=== PATIENT | female | born 1965 | race Caucasian/White ===

== ENCOUNTER 2016-08-21 14:45 | Inpatient (IN) | payer OTHER, MEDICAID ==
[~2016-08-21] VITALS: Ht 175.3 cm; Wt 102.0 kg
[~2016-08-21 14:45] MED LIST: CARV12.52 PO; LACTATED RINGER'S 1000 ML INJ 1,000 ML IV ONE; LISI30TA44 PO; NORMOSOL R INJ 1,000 ML IV ONE; ONDANSETRON HCL 4 MG/2 ML VIAL IV PUSH ONE; PROPOFOL 200 MG/20 ML AMP IV ONE; VITA20002 PO
[2016-08-21 14:47] VITALS: BP 136/94; PULSE 90; RESP 20; TEMP 98.3; O2SAT 96
[2016-08-21] MEDS ORDERED: SODIUM CHLOR 0.9% 1000 ML INJ 1,000 ML IV SCH ×2 (15:11→15:45)
[2016-08-21] MEDS ORDERED: PANT20TA2 PO (15:11)
[2016-08-21] MEDS ORDERED: SODIUM CHLORIDE 0.9% FLUSH 5 ML FLUSH IVF PRN ×2 (15:15→20:00)
--- NOTE | 2016-08-21 15:28 | PD ---
HPI Chief Complaint: GI Complaint Time Seen by Provider: 15:11 Travel History International Travel<30 days: No Contact w/Intl Traveler<30days: No Traveled to known affect area: No History of Present Illness HPI Patient is a 50-year-old female sent to the emergency room for admission by Dr. Maurice, patient's PCP. As per Dr. Maurice, patient has been complaining of abdominal pain for the past 2 days, Dr. Maurice evaluated her in the office, the patient had peritoneal signs. Patient was sent to [facility] today for an emergent CAT scan of her abdomen and pelvis, reports that he was called as patient was found to have diverticulitis with abscess and with perforation. Dr. Maurice did call Dr. Ramos with General surgery and reviewed case, requested that patient be placed on antibiotics and admitted to Dr. Kay service. Dr. Kay is aware of case. Patient reports that for the past 2 days, she's been having increased lower abdominal pain. Patient reports that she saw her primary care doctor today who sent her for imaging studies. Patient reports that she was found to have diverticulitis with abscess and with perforation. Patient reports that she did have surgery by Dr. Cheng last year, reports that she had a gastric sleeve placed. Patient does see [facility] as outpatient, reports that she needed at EGD prior to having this gastric sleeve placed. Patient has never had a colonoscopy in the past. PFSH Past Medical History Anxiety: Yes Cancer: No Cardiovascular Problems: Yes (htn) Diabetes: No Endocrine: No Genitourinary: No Hepatitis: No Hiatal Hernia: No Hypertension: Yes Immune Disorder: No Musculoskeletal: No Neurologic: No Psychiatric: No Reproductive: No Respiratory: Yes (SLEEP APNEA) Immunizations Current: Yes Thyroid Disease: No ?: Not Menopausal: Yes Tubal Ligation: Yes Past Surgical History Abdominal Surgery: Yes (LAPAROTOMY/gastric sleeve) AICD: No Body Medical Devices: LEFT WRIST PLATE AND SCREWS Section: Yes Gynecologic Surgery: Yes (C-SECT. X2) Joint Replacement: No Pacemaker: No Other Surgery: Yes (CARPUL TUNNEL) Social History Alcohol Use: No Tobacco Use: No Substance Use: No Allergies-Medications (Allergen,Severity, Reaction): Coded Allergies: Cipro (Verified Allergy, Intermediate, nausea, hives, 08/21/16) Naproxen (Verified Adverse Reaction, Mild, nausea, 08/21/16) Reported Meds & Prescriptions Reported Meds & Active Scripts Active Reported Pantoprazole (Pantoprazole Sodium) 20 Mg Tab Unknown Dose PO DAILY Review of Systems General / Constitutional: No: Fever Eyes: No: Visual changes HENT: No: Headaches Cardiovascular: No: Chest Pain or Discomfort Respiratory: No: Shortness of Breath Gastrointestinal: Positive: Nausea, Abdominal Pain, No: Vomiting, Diarrhea Genitourinary: No: Dysuria Musculoskeletal: No: Pain Skin: No Rash Neurologic: No: Weakness Psychiatric: No: Depression Endocrine: No: Polydipsia Hematologic/Lymphatic: No: Easy Bruising Physical Exam Narrative GENERAL: No acute distress, nontoxic SKIN: Warm and dry. HEAD: Atraumatic. Normocephalic. EYES: Pupils equal and round. No scleral icterus. No injection or drainage. ENT: No nasal bleeding or discharge. Mucous membranes pink and moist. NECK: Trachea midline. No JVD. CARDIOVASCULAR: Regular rate and rhythm. No murmur appreciated. RESPIRATORY: No accessory muscle use. Clear to auscultation. Breath sounds equal bilaterally. GASTROINTESTINAL: Patient with lower abdominal pain evaluation with peritoneal signs MUSCULOSKELETAL: No obvious deformities. No clubbing. No cyanosis. No edema. NEUROLOGICAL: Awake and alert. No obvious cranial nerve deficits. Motor grossly within normal limits. Normal speech. PSYCHIATRIC: Appropriate mood and affect; insight and judgment normal. Data Data Last Documented VS Vital Signs Date Time Temp Pulse Resp B/P Pulse Ox O2 Delivery O2 Flow Rate FiO2 08/21/16 14:47 98.3 90 20 136/94 96 Room Air Orders Complete Blood Count With Diff (08/21/16 15:11) Comprehensive Metabolic Panel (08/21/16 15:11) Lipase (08/21/16 15:11) Lactic Acid (08/21/16 15:11) Prothrombin Time / Inr (Pt) (08/21/16 15:11) Act Partial Throm Time (Ptt) (08/21/16 15:11) Urinalysis - C+S If Indicated (08/21/16 15:11) Iv Access Insert/Monitor (08/21/16 15:11) Oximetry (08/21/16 15:11) NPO (08/21/16 15:11) Sodium Chlor 0.9% 1000 Ml Inj (Ns 1000 M (08/21/16 15:11) Sodium Chloride 0.9% Flush (Ns Flush) (08/21/16 15:15) Electrocardiogram (08/21/16 15:11) Piperacil-Tazo 3.375 Gm Premix (Zosyn 3. (08/21/16 15:30) Morphine Inj (Morphine Inj) (08/21/16 15:30) Diet Npo Except Meds (08/21/16 Dinner) Admit To Inpatient (08/21/16 ) Scd Bilateral/Knee High VANESSA.QSHIFT (08/21/16 15:35) Vital Signs (Adult) VANESSA.Q4H (08/21/16 15:35) Activity Oob With Assistance (08/21/16 15:35) Inpatient Certification (08/21/16 ) Sodium Chlor 0.9% 1000 Ml Inj (Ns 1000 M (08/21/16 15:45) MDM Medical Decision Making Medical Screen Exam Complete: Yes Emergency Medical Condition: Yes Interpretation(s) Vital Signs Date Time Temp Pulse Resp B/P Pulse Ox O2 Delivery O2 Flow Rate FiO2 08/21/16 14:47 98.3 90 20 136/94 96 Room Air Differential Diagnosis Acute diverticulitis with perforation and abscess formation Narrative Course Patient is a 50-year-old female who presents to emergency room for admission to the hospital by Dr. Maurice. Patient has had abdominal pain for the past 2 days , reports that she had a CAT scan of her abdomen pelvis today which showed diverticulitis with abscess and perforation. Dr. Maurice request the patient be admitted to Dr. Kay service with consult to Dr. Ramos with general surgery. Requests antibiotics be given to patient: Levaquin and Flagyl, patient has an allergy to Cipro and allergy may be hives, will give patient Zosyn in lieu of Levaquin and Flagyl. Call made to Dr. Kay for admission. Case is reviewed with Dr. Kay , accepts patient to service Diagnosis Primary Impression: Acute diverticulitis Admitting Information Admitting Physician Requests: Triny Mathew DO Aug 21, 2016 15:28
[2016-08-21] MEDS ORDERED: PIPERACIL-TAZO 3.375 GM PREMIX 50 ML IV ONE (15:30)
[2016-08-21] MEDS ORDERED: MORPHINE SULFATE 4 MG/ML INJ IM ONE (15:30)
[2016-08-21 15:40] LABS: AUTOMATED NEUTROPHIL # 7.2 TH/MM3 (1.8-7.7); BASOPHIL % 0.2 % (0.0-2.0); EOSINOPHIL # 0.1 TH/MM3 (0-0.4); HEMATOCRIT 44.5 % (35.0-46.0); HEMO FLAGS DIFF FINAL; LYMPH % 23.9 % (9.0-44.0); LYMPHOCYTE # 2.6 TH/MM3 (1.0-4.8); MEAN CELL VOLUME 83.4 FL (80.0-100.0); MEAN CORPUSCULAR HEMOGLOBIN 28.5 PG (27.0-34.0); MEAN CORPUSCULAR HGB CONC 34.2 % (32.0-36.0); NEUT % 66.9 % (16.0-70.0); PLATELET COUNT 242 TH/MM3 (150-450); RED BLOOD COUNT 5.34 MIL/MM3 (4.00-5.30); RED CELL DISTRIBUTION WIDTH 13.6 % (11.6-17.2); WHITE BLOOD COUNT 10.8 TH/MM3 (4.0-11.0)
[2016-08-21] MEDS ORDERED: ACETAMINOPHEN 325 MG TAB PO PRN ×2 (15:45→20:00)
[2016-08-21] MEDS ORDERED: MORPHINE SULFATE 4 MG/ML INJ IV PUSH PRN ×2 (15:45)
[2016-08-21] MEDS ORDERED: ONDANSETRON HCL 4 MG/2 ML VIAL IV PRN ×2 (15:45→20:00)
[2016-08-21 15:48] LABS: BLOOD, URINE NEG (NEG); COMMENT (UR) CULT NOT INDICATED; CULTURE IF INDICATED CULT NOT INDICATED; GLUCOSE,URINE NEG (NEG); KETONE, URINE NEG (NEG); MUCUS URINE FEW /lpf (OCC); NITRITE,URINE NEG (NEG); PH, URINE 5.5 (5.0-8.5); SQUAMOUS EPITHELIAL CELL URINE 1 /hpf (0-5); URINE COLOR YELLOW (YELLW/STRAW)
[2016-08-21 15:50] LABS: APTT (PATIENT) 27.5 SEC (24.3-30.1); PROTHROMBIN TIME - PATIENT 11.3 SEC (9.8-11.6)
[2016-08-21] MEDS ORDERED: VITA100021 SL (15:51)
[2016-08-21] MEDS ORDERED: [UNRECOGNIZED DRUG - OTHER] (15:51)
[2016-08-21] MEDS ORDERED: MULTTAB67 PO (15:51)
--- NOTE | 2016-08-21 15:56 | HHI.HP ---
HPI Service [facility] Hospitalists Primary Care Physician Nehemiah Maurice M.D. Admission Diagnosis Perforated diverticulitis with abscess Chief Complaint: Abd pain Travel History International Travel<30 Days: No Contact w/Intl Traveler <30 Da: No Traveled to Known Affected Are: No History of Present Illness Mrs. Durbin is a pleasant 50 y/o WF with morbid obesity s/p gastric sleeve surgery in 11/2015. She has been taking Protonix 20mg po daily since that time but has not had much problem with reflux or nausea. Pt states that two days ago she began having lower abd pain. She woke up with cramping lower abd pain. Passing small amounts of gas. No nausea or vomiting. Decreased appetite. Pt has been having issues with BMs since her surgery more constipated but was not taking any laxatives up until Thursday after the abd pain started and she took two stool softeners. She had two soft/mushy BMs yesterday and this morning. Denies any melena, BRBPR or mucoid stools. Pt reports possibly a subjective fever last night but no chills and no documented fever today. Dr. Maurice evaluated her in the office, the patient had peritoneal signs. Patient was sent to [facility] today for an emergent CAT scan of her abdomen and pelvis, reportedly the patient was found to have perforated diverticulitis with abscess. Pt was sent to the ER for Abx and surgical evaluation. Dr. Maurice did speak with Dr. Ramos prior to the pts arrival int he ER and it was indicated that Dr. Ramos wants IR to drain the abscess. Review of Systems Constitutional: DENIES: Fever, Chills, Night Sweats Respiratory: DENIES: Cough, Shortness of breath Cardiovascular: DENIES: Chest pain, Palpitations Gastrointestinal: COMPLAINS OF: Abdominal pain, DENIES: Black stools, Bloody stools, Constipation, Diarrhea, Nausea, Vomiting Integumentary: DENIES: Rash Past Family Social History Past Medical History GERD Morbid obesity s/p gastric sleeve surgery in 11/2015 Past Surgical History Gastric sleeve in 11/2015 Tubal ligation Cesarian section no previous evaluation with colonoscopy Reported Medications Pantoprazole 20 Mg PO DAILY Allergies: Coded Allergies: Cipro (Verified Allergy, Intermediate, nausea, hives, 08/21/16) Naproxen (Verified Adverse Reaction, Mild, nausea, 08/21/16) Family History Father from colon cancer at age 48 Mother with hx of diverticulitis, CVA/TIA Social History Denies any alcohol, tobacco or illicit drug use 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 SKIN: No rashes, ecchymoses or lesions. Cool and dry. HEENT: Atraumatic. Normocephalic. No temporal or scalp tenderness. No scleral icterus. Airway patent. NECK: Trachea midline, supple, nontender. CARDIOV: Regular. RESP: CTA bilaterally. No wheezes, rales, or rhonchi. ABD: Decreased BS, soft, diffusely tender, mildly distended. No guarding or rebound. EXT: Extremities without clubbing, cyanosis, or edema. NEURO: Awake and alert. Motor and sensory grossly within normal limits. Normal speech. Septic Shock Reassessment Heart: Regular rate and rhythm Lungs: Clear Skin: Warm Peripheral Pulses: Bounding Right Radial Bounding Left Radial Bounding Right Popliteal Bounding Left Popliteal Bounding Right Dorsalis Pedis Bounding Left Dorsalis Pedis Bounding Right Posterior Tibial Bounding Left Posterior Tibial Capillary Refill: <2 seconds Assessment and Plan Problem List: (1) Diverticular disease of intestine with perforation and abscess Status: Acute Plan: - Pt admitted with two days of abdominal pain and had an outpt CT scan abd/ pelvis which revealed acute diverticulitis of the sigmoid colon complicated by abscess and free air. Pt was sent to the ER by her PCP, Dr. Maurice, after being called with these CT scan findings. - Dr. Maurice spoke with Dr. Ramos, [facility] General Surgery, and it was recommended that the pt be evaluated by IR for possible drain placement. - In the ED, Dr Collins spoke with radiologist and they did not feel that IR would be able to help because the pt has significant perforation and free air throughout the abdomen. - There is also concern for possible perforation related to underlying colon cancer given her family history. - We will start the pt on Flagyl and Zosyn - Consult General Surgery - IVF - NPO - IV pain meds PRN - Antiemetics - Tylenol - Check CBC, CMP and monitor labs in AM - Vital signs are stable currently - DVT prophylaxis Assessment and Plan Patient examined. Assessment and plan formulated with Triny Osman PA-C. I agree with the above. perforated colon. possible from diverticular dz. of note pt father had colon ca at 48yo. I reviewed the CT with dr Victor and showed large intraabd free air and small pericolonic abscess to small to drainl. discussed with DR Ramos who will take her to OR today. ivf and iv abx ordered. Physician Certification 2 Midnight Certification Type: Admission for Inpatient Services Order for Inpatient Services The services are ordered in accordance with Medicare regulations or non- Medicare payer requirements, as applicable. In the case of services not specified as inpatient-only, they are appropriately provided as inpatient services in accordance with the 2-midnight benchmark. Estimated LOS (days): 3 3 days is the estimated time the patient will need to remain in the hospital, assuming treatment plan goals are met and no additional complications. Post-Hospital Plan: Not yet determined Triny Osman Aug 21, 2016 15:56 Zeyad Collins MD Aug 21, 2016 17:12
[2016-08-21] MEDS ORDERED: metroNIDAZOLE 500 MG INJ 100 ML IV SCH (16:00)
[2016-08-21 16:11] LABS: ALKALINE PHOSPHATASE 131 U/L (45-117); TOTAL BILIRUBIN ADULT 0.6 MG/DL (0.2-1.0)
[2016-08-21 16:13] LABS: ALT (GPT) 29 U/L (10-53); ANION GAP 8 MEQ/L (5-15); AST (GOT) 33 U/L (15-37); BICARBONATE 26.5 MEQ/L (21.0-32.0); BLOOD UREA NITROGEN 21 MG/DL (7-18); CHLORIDE 105 MEQ/L (98-107); GLOMERULAR FILTRATION RATE 84 ML/MIN (>89); SODIUM (NA) 139 MEQ/L (136-145)
[2016-08-21 16:14] LABS: POTASSIUM 4.6 MEQ/L (3.5-5.1)
[2016-08-21] MEDS: PANTOPRAZOLE SODIUM 40 MG VIAL IV PUSH SCH (16:19)
[2016-08-21] MEDS ORDERED: SODIUM CHLORIDE 0.9% 20 ML VIAL ONE (17:05)
[2016-08-21] MEDS ORDERED: ceFAZolin INJ 1,000 MG VIAL ONE ×2 (17:06→17:13)
[2016-08-21] MEDS ORDERED: METHYLENE BLUE 10 MG/ML VIAL ONE (17:06)
[2016-08-21] MEDS ORDERED: BUPIVACAINE/EPINEPHRINE 0.5% 50 ML VIAL ONE (18:30)
[2016-08-21] MEDS ORDERED: BUPIVACAINE/EPINEPHRINE 0.25% PF 30 ML VIAL ONE (18:30)
[2016-08-21] MEDS ORDERED: MIDAZOLAM HCL 2 MG/2 ML VIAL ONE (19:37)
[2016-08-21] MEDS ORDERED: MORPHINE SULFATE 4 MG/ML INJ ONE (19:38)
[2016-08-21] MEDS ORDERED: fentaNYL CITRATE 250 MCG/5 ML AMP ONE (19:38)
[2016-08-21] MEDS ORDERED: DO NOT ADM ANY ANTICOAGULANT DRUGS XX PRN (20:00)
[2016-08-21] MEDS ORDERED: NALOXONE HCL 0.4 MG/ML AMP IV PRN (20:00)
[2016-08-21] MEDS: D5-1/2 NS + KCL 20 MEQ INJ 1,000 ML IV SCH (20:00)
[2016-08-21] MEDS ORDERED: Post-op Orders (for Pharmacy) MISC XX ONE (20:00)
[2016-08-21] MEDS ORDERED: HYDROmorphone HCL 2 MG TAB PO PRN ×2 (20:00)
[2016-08-21] MEDS ORDERED: PANTOPRAZOLE SODIUM 40 MG VIAL IV SCH (20:00)
[2016-08-21] MEDS ORDERED: ACETAMINOPHEN/HYDROcodone 325 MG/5 MG TAB PO PRN (20:00)
[2016-08-21] MEDS ORDERED: *morphine SULFATE 8 MG/ML PERIprocedure ONLY ONE (20:12)
--- NOTE | 2016-08-21 20:24 | PD.OP ---
cc: Lorenzo Ramos MD Operative Report Date of Surgery: Aug 21, 2016 Preoperative Diagnosis: Perforated diverticulitis Postoperative Diagnosis: Perforated diverticulitis Procedure: Diagnostic laparoscopy with irrigation and placement of drain Anesthesia: General endotracheal Surgeon: Lorenzo Ramos Civil Drafting Technician(s): Marley Jean CFA Operation and Findings: Operative findings: The patient was found to have an isolated less than 6 cm area of proximal sigmoid colon which was inflamed and had attached appendices epiploica consistent with a sealed perforation. There was no gross feculent contamination in the area or pelvis. There is no other areas of inflammation and minimal other inflammatory changes. Operative procedure: The patient was brought to the operating room and after satisfactory general endotracheal anesthesia obtained, the abdomen was prepped and draped in the usual sterile fashion. 0.25% Marcaine with epinephrine was used to infiltrate the skin for local anesthesia. The skin was incised in the right upper quadrant and a 5 mm trocar was placed in the peritoneal cavity under direct visualization. The abdomen was distended to 15 mmHg using carbon dioxide after which the camera was reinserted and visceral injury inspected for , with none being identified. Another 5 mm port was placed under direct visualization the right lower quadrant and a third port was placed in the left upper quadrant without problem. There was one omental adhesion in the right mid abdomen which was taken down the Harmonic scalpel without problem. The area of induration and inflammation in the sigmoid colon was identified and it was moved around with good freedom on both sides of the inflamed area indicating no further disease. The remainder of the sigmoid colon down in the pelvis appeared to be normal as well. The as mentioned above there was no evidence of contaminating fluid nor feculent material. The area was irrigated copiously with saline after which inspection again revealed no evidence of leakage or contamination. A round 19 Jordanian drain was placed within the peritoneal cavity through the 5 ports and placed in the area of the affected colon as well as down into the pelvis. It was secured to the skin with a 3-0 nylon. The abdomen was inspected once again found to have no other abnormalities. The carbon dioxide was then vented as completely as possible the atmosphere the ports were removed and the skin closed with interrupted 4-0 Monocryl subcutaneous stitches. Steri-Strips were applied and the patient was then taken from the operating room, in satisfactory condition, having tolerated procedure without problem. Estimated blood loss was nil. History, sponge, and needle counts reported as being correct 2 at the end of the procedure. Lorenzo Ramos MD Aug 21, 2016 20:24
[2016-08-21] MEDS: SODIUM CHLORIDE 0.9% FLUSH 5 ML FLUSH IVF SCH (21:00)
[2016-08-21] MEDS: PIPERACIL-TAZO 3.375 GM PREMIX 50 ML IV SCH (21:40)
[2016-08-21] MEDS: KETOROLAC TROMETHAMINE 30 MG/ML (IVP) VIAL IVP SCH (21:41)
[2016-08-21] MEDS ORDERED: PIPERACIL-TAZO 3.375 GM PREMIX 50 ML IV SCH (22:00)
[2016-08-21] MEDS: metroNIDAZOLE 500 MG INJ 100 ML IV SCH (23:51)
[2016-08-22] VITALS (7 sets, daily range): BP systolic 114–148; BP diastolic 61–89; PULSE 63–90; RESP 17–20; TEMP 96.2–98.8; O2SAT 96–100
[2016-08-22] MEDS: KETOROLAC TROMETHAMINE 30 MG/ML (IVP) VIAL IVP SCH ×4 (01:52→20:46)
[2016-08-22] MEDS: D5-1/2 NS + KCL 20 MEQ INJ 1,000 ML IV SCH ×3 (02:40→14:59)
[2016-08-22] MEDS: PIPERACIL-TAZO 3.375 GM PREMIX 50 ML IV SCH ×4 (04:05→20:47)
[2016-08-22 04:59] LABS: AUTOMATED NEUTROPHIL # 4.7 TH/MM3 (1.8-7.7); BASOPHIL % 0.1 % (0.0-2.0); EOSINOPHIL # 0.1 TH/MM3 (0-0.4); EOSINOPHIL % 0.7 % (0.0-4.0); HEMATOCRIT 38.6 % (35.0-46.0); HEMO FLAGS DIFF FINAL; LYMPH % 27.3 % (9.0-44.0); MEAN CELL VOLUME 83.5 FL (80.0-100.0); MEAN CORPUSCULAR HEMOGLOBIN 28.1 PG (27.0-34.0); MEAN CORPUSCULAR HGB CONC 33.7 % (32.0-36.0); MONO % 8.6 % (0.0-8.0); NEUT % 63.3 % (16.0-70.0); PLATELET COUNT 193 TH/MM3 (150-450); RED BLOOD COUNT 4.62 MIL/MM3 (4.00-5.30); RED CELL DISTRIBUTION WIDTH 13.4 % (11.6-17.2); WHITE BLOOD COUNT 7.4 TH/MM3 (4.0-11.0)
[2016-08-22 05:20] LABS: BICARBONATE 27.9 MEQ/L (21.0-32.0); MAGNESIUM 2.1 MG/DL (1.5-2.5)
[2016-08-22] MEDS: metroNIDAZOLE 500 MG INJ 100 ML IV SCH ×3 (07:30→23:26)
[2016-08-22] MEDS: SODIUM CHLORIDE 0.9% FLUSH 5 ML FLUSH IVF SCH ×2 (07:31→20:46)
[2016-08-22] MEDS: ACETAMINOPHEN/HYDROcodone 325 MG/7.5 MG TAB PO PRN ×2 (09:47→18:12)
--- NOTE | 2016-08-22 11:02 | HHI.PR ---
Subjective Remarks Pt doing well today She underwent diagnostic laparoscopy with irrigation and placement of drain on with Dr. Ramos. Intraoperatively pt was found to have an isolated less than 6 cm area of proximal sigmoid colon which was inflamed and had attached appendices epiploica consistent with a sealed perforation. There was no gross feculent contamination in the area or pelvis. There is no other areas of inflammation and minimal other inflammatory changes. Post-operatively pt is doing well. Afebrile Abd pain is currently controlled Fields cath in place Objective Vitals Vital Signs Date Time Temp Pulse Resp B/P Pulse Ox O2 Delivery O2 Flow Rate FiO2 08/22/16 08:00 97.3 68 17 138/74 100 08/22/16 02:52 18 08/22/16 00:00 98.8 90 18 148/89 97 08/21/16 20:33 98.3 88 20 155/63 96 Nasal Cannula 2 08/21/16 20:30 88 20 155/63 96 Nasal Cannula 2 08/21/16 20:15 92 20 157/85 99 Nasal Cannula 2 08/21/16 20:00 102 20 152/88 99 Nasal Cannula 2 08/21/16 19:45 101 20 157/84 99 Nasal Cannula 2 08/21/16 19:30 116 20 168/86 99 Nasal Cannula 2 08/21/16 19:25 98.0 95 20 178/97 98 Nasal Cannula 2 08/21/16 14:47 98.3 90 20 136/94 96 Room Air 08/21/16 08/21/16 08/22/16 15:00 23:00 07:00 Intake Total 2000 ml 1087 ml Output Total 200 ml 580 ml Balance 1800 ml 507 ml Intake Oral 220 ml IV Total 867 ml Other 2000 ml Output Urine Total 150 ml 500 ml Drainage Total 80 ml Estimated Blood Loss 50 ml # Voids 1 # Bowel Movements 0 Result Diagram: 08/22/16 0425 08/22/16 042 Other Results Laboratory Tests Test 08/21/16 08/22/16 15:20 04:25 White Blood Count 10.8 TH/MM3 7.4 TH/MM3 Red Blood Count 5.34 MIL/MM3 4.62 MIL/MM3 Hemoglobin 15.2 GM/DL 13.0 GM/DL Hematocrit 44.5 % 38.6 % Mean Corpuscular Volume 83.4 FL 83.5 FL Mean Corpuscular Hemoglobin 28.5 PG 28.1 PG Mean Corpuscular Hemoglobin 34.2 % 33.7 % Concent Red Cell Distribution Width 13.6 % 13.4 % Platelet Count 242 TH/MM3 193 TH/MM3 Mean Platelet Volume 9.0 FL 8.9 FL Neutrophils (%) (Auto) 66.9 % 63.3 % Lymphocytes (%) (Auto) 23.9 % 27.3 % Monocytes (%) (Auto) 8.0 % 8.6 % Eosinophils (%) (Auto) 1.0 % 0.7 % Basophils (%) (Auto) 0.2 % 0.1 % Neutrophils # (Auto) 7.2 TH/MM3 4.7 TH/MM3 Lymphocytes # (Auto) 2.6 TH/MM3 2.0 TH/MM3 Monocytes # (Auto) 0.9 TH/MM3 0.6 TH/MM3 Eosinophils # (Auto) 0.1 TH/MM3 0.1 TH/MM3 Basophils # (Auto) 0.0 TH/MM3 0.0 TH/MM3 CBC Comment DIFF FINAL DIFF FINAL Differential Comment Prothrombin Time 11.3 SEC Prothromb Time International 1.0 RATIO Ratio Activated Partial 27.5 SEC Thromboplast Time Urine Color YELLOW Urine Turbidity CLEAR Urine pH 5.5 Urine Specific [place] GREATER THAN 1.050 Urine Protein 30 mg/dL Urine Glucose (UA) NEG mg/dL Urine Ketones NEG mg/dL Urine Occult Blood NEG Urine Nitrite NEG Urine Bilirubin NEG Urine Urobilinogen LESS THAN 2.0 MG/DL Urine Leukocyte Esterase NEG Urine RBC LESS THAN 1 /hpf Urine WBC 1 /hpf Urine Squamous Epithelial 1 /hpf Cells Urine Mucus FEW /lpf Microscopic Urinalysis Comment CULT NOT INDICATED Sodium Level 139 MEQ/L 142 MEQ/L Potassium Level 4.6 MEQ/L 4.0 MEQ/L Chloride Level 105 MEQ/L 108 MEQ/L Carbon Dioxide Level 26.5 MEQ/L 27.9 MEQ/L Anion Gap 8 MEQ/L 6 MEQ/L Blood Urea Nitrogen 21 MG/DL 13 MG/DL Creatinine 0.73 MG/DL 0.61 MG/DL Estimat Glomerular Filtration 84 ML/MIN 103 ML/MIN Rate Random Glucose 79 MG/DL 97 MG/DL Lactic Acid Level 0.7 mmol/L Calcium Level 9.4 MG/DL 8.4 MG/DL Total Bilirubin 0.6 MG/DL Aspartate Amino Transf 33 U/L (AST/SGOT) Alanine Aminotransferase 29 U/L (ALT/SGPT) Alkaline Phosphatase 131 U/L Total Protein 8.1 GM/DL Albumin 3.6 GM/DL Lipase 130 U/L Magnesium Level 2.1 MG/DL Objective Remarks General: NAD, AAOx3 Chest: CTA bilaterally Cardiac: Regular Abd: Few bowel sounds, soft mild diffuse tenderness, improving : Fields cath in place Ext: No edema A/P Problem List: (1) Diverticular disease of intestine with perforation and abscess Status: Acute Plan: - Pt admitted with two days of abdominal pain and had an outpt CT scan abd/ pelvis which revealed acute diverticulitis of the sigmoid colon complicated by abscess and free air. Pt was sent to the ER by her PCP, Dr. Maurice, after being called with these CT scan findings. - Dr. Maurice spoke with Dr. Ramos, [facility] General Surgery, and it was recommended that the pt be evaluated by IR for possible drain placement. - In the ED, Dr Collins spoke with radiologist and they did not feel that IR would be able to help because the pt has significant perforation and free air throughout the abdomen. - Pt was seen by General Surgery, Dr. Ramos last night and underwent diagnostic laparoscopy with irrigation and placement of drain on 08/21/[address] Ramos. - Intraoperatively pt was found to have an isolated less than 6 cm area of proximal sigmoid colon which was inflamed and had attached appendices epiploica consistent with a sealed perforation. There was no gross feculent contamination in the area or pelvis. There is no other areas of inflammation and minimal other inflammatory changes. - Cont. Flagyl and Zosyn - IVF - Clear liquid diet - Encourage ambulation - Remove Fields - Pain meds PRN - Antiemetics - Tylenol PRN - DVT prophylaxis Assessment and Plan Patient examined. Assessment and plan formulated with Triny Osman PA-C. I agree with the above. diverticular perforation of prox sigmoid s/p laparoscope 08/21 with 6cm inflammatory area and sealed perf. drain in place. cont ivf and clears. d/c fields at pt request. ambulate. pain meds ordered per gen surgery. Triny Osman Aug 22, 2016 11:02 Zeyad Collins MD Aug 22, 2016 11:36
--- NOTE | 2016-08-22 12:07 | HHI.PR ---
Subjective Subjective Notes The patient feels better today than last night prior to surgery. She still has small to moderate amount of abdominal pain but it is much improved and she is taking very little in the way of pain medication. She has been a ambulatory today and has been passing small amounts of flatus. She has no other complaints. Objective Vitals/I&O Vital Signs Date Time Temp Pulse Resp B/P Pulse Ox O2 Delivery O2 Flow Rate FiO2 08/22/16 10:55 97 21 08/22/16 08:00 97.3 68 17 138/74 08/21/16 20:33 Nasal Cannula 2 Labs Laboratory Tests Test 08/21/16 08/22/16 15:20 04:25 White Blood Count 10.8 7.4 Red Blood Count 5.34 4.62 Hemoglobin 15.2 13.0 Hematocrit 44.5 38.6 Mean Corpuscular Volume 83.4 83.5 Mean Corpuscular Hemoglobin 28.5 28.1 Mean Corpuscular Hemoglobin 34.2 33.7 Concent Red Cell Distribution Width 13.6 13.4 Platelet Count 242 193 Mean Platelet Volume 9.0 8.9 Neutrophils (%) (Auto) 66.9 63.3 Lymphocytes (%) (Auto) 23.9 27.3 Monocytes (%) (Auto) 8.0 8.6 Eosinophils (%) (Auto) 1.0 0.7 Basophils (%) (Auto) 0.2 0.1 Neutrophils # (Auto) 7.2 4.7 Lymphocytes # (Auto) 2.6 2.0 Monocytes # (Auto) 0.9 0.6 Eosinophils # (Auto) 0.1 0.1 Basophils # (Auto) 0.0 0.0 CBC Comment DIFF FINAL DIFF FINAL Differential Comment Prothrombin Time 11.3 Prothromb Time International 1.0 Ratio Activated Partial 27.5 Thromboplast Time Urine Color YELLOW Urine Turbidity CLEAR Urine pH 5.5 Urine Specific [place] GREATER THAN 1.050 Urine Protein 30 Urine Glucose (UA) NEG Urine Ketones NEG Urine Occult Blood NEG Urine Nitrite NEG Urine Bilirubin NEG Urine Urobilinogen LESS THAN 2.0 Urine Leukocyte Esterase NEG Urine RBC LESS THAN 1 Urine WBC 1 Urine Squamous Epithelial 1 Cells Urine Mucus FEW Microscopic Urinalysis Comment CULT NOT INDICATED Sodium Level 139 142 Potassium Level 4.6 4.0 Chloride Level 105 108 Carbon Dioxide Level 26.5 27.9 Anion Gap 8 6 Blood Urea Nitrogen 21 13 Creatinine 0.73 0.61 Estimat Glomerular Filtration 84 103 Rate Random Glucose 79 97 Lactic Acid Level 0.7 Calcium Level 9.4 8.4 Total Bilirubin 0.6 Aspartate Amino Transf 33 (AST/SGOT) Alanine Aminotransferase 29 (ALT/SGPT) Alkaline Phosphatase 131 Total Protein 8.1 Albumin 3.6 Lipase 130 Magnesium Level 2.1 Cardiovascular: Regular Lungs: Clear Abdomen: Non-distended, Post-op tenderness Extremities: No edema A/P Assessment and Plan Impression: Status post diagnostic laparoscopy with irrigation and placement of intra-abdominal drain for perforated diverticulitis. She is stable and improving on antibiotics. Plan: I will have the Abraham catheter removed today and she will be advanced to a full liquid diet. She should have one more day of intravenous antibiotics and then oral antibiotics for a total of 10 days. She might be able to be discharged over the weekend. Lorenzo Ramos MD Aug 22, 2016 12:07
[2016-08-22] MEDS: PANTOPRAZOLE SODIUM 40 MG VIAL IV PUSH SCH (16:40)
--- NOTE | 2016-08-22 18:53 | EKG ---
Date Performed: 08/21/2016 Time Performed: 15:31:16 PTAGE: 50 years EKG: Sinus rhythm MODERATE INTRAVENTRICULAR CONDUCTION DELAY NONSPECIFIC T-WAVE ABNORMALITY ABNORMAL ECG PREVIOUS TRACING 10/04/2015 08.24.31 Since previous tracing, no significant change noted DOCTOR: Charmaine Johnson Interpretating Date/Time 08/22/2016 18:52:01
[2016-08-23 00:15] VITALS: BP 137/80; PULSE 69; RESP 18; TEMP 96.3; O2SAT 97
[2016-08-23] MEDS: KETOROLAC TROMETHAMINE 30 MG/ML (IVP) VIAL IVP SCH ×3 (03:07→14:00)
[2016-08-23] MEDS: PIPERACIL-TAZO 3.375 GM PREMIX 50 ML IV SCH ×3 (03:08→16:30)
[2016-08-23] MEDS: D5-1/2 NS + KCL 20 MEQ INJ 1,000 ML IV SCH ×2 (03:08→16:05)
[2016-08-23 08:00] VITALS: BP 122/78; PULSE 68; RESP 16; TEMP 97.2; O2SAT 99
[2016-08-23] MEDS: metroNIDAZOLE 500 MG INJ 100 ML IV SCH ×2 (09:00→16:31)
[2016-08-23] MEDS: SODIUM CHLORIDE 0.9% FLUSH 5 ML FLUSH IVF SCH (09:00)
[2016-08-23 09:15] VITALS: O2SAT 99
[2016-08-23 12:00] VITALS: BP 133/71; PULSE 63; RESP 18; TEMP 96.7; O2SAT 98
--- NOTE | 2016-08-23 13:15 | HHI.PR ---
Subjective Remarks passing flatus and bm. Objective Vitals heart reg lung cta abd bs/nat drain light pink ext no edema Vital Signs Date Time Temp Pulse Resp B/P Pulse Ox O2 Delivery O2 Flow Rate FiO2 08/23/16 12:00 96.7 63 18 133/71 98 08/23/16 09:15 99 21 08/23/16 08:00 97.2 68 16 122/78 99 08/23/16 00:15 96.3 69 18 137/80 97 08/22/16 20:58 98 21 08/22/16 20:32 97.1 67 20 116/61 98 08/22/16 16:00 96.2 65 17 114/63 100 08/22/16 08/22/16 08/23/16 15:00 23:00 07:00 Intake Total 1445 ml 480 ml 240 ml Output Total 1250 ml 380 ml 1028 ml Balance 195 ml 100 ml -788 ml Intake Oral 240 ml 480 ml 240 ml IV Total 1205 ml Output Urine Total 1200 ml 350 ml 1000 ml Drainage Total 50 ml 30 ml 28 ml # Voids 2 # Bowel Movements 0 1 Result Diagram: 08/22/1642408/22/16424 Objective Remarks General: NAD, AAOx3 Chest: CTA bilaterally Cardiac: Regular Abd: Few bowel sounds, soft mild diffuse tenderness, improving : Fields cath in place Ext: No edema A/P Problem List: (1) Diverticular disease of intestine with perforation and abscess Status: Acute Plan: - Pt admitted with two days of abdominal pain and had an outpt CT scan abd/ pelvis which revealed acute diverticulitis of the sigmoid colon complicated by abscess and free air. Pt was sent to the ER by her PCP, Dr. Maurice, after being called with these CT scan findings. - Dr. Maurice spoke with Dr. Ramos, [facility] General Surgery, and it was recommended that the pt be evaluated by IR for possible drain placement. - In the ED, Dr Collins spoke with radiologist and they did not feel that IR would be able to help because the pt has significant perforation and free air throughout the abdomen. - Pt was seen by General Surgery, Dr. Ramos last night and underwent diagnostic laparoscopy with irrigation and placement of drain on 08/21/[address] Ramos. - Intraoperatively pt was found to have an isolated less than 6 cm area of proximal sigmoid colon which was inflamed and had attached appendices epiploica consistent with a sealed perforation. There was no gross feculent contamination in the area or pelvis. There is no other areas of inflammation and minimal other inflammatory changes. - Cont. Flagyl and Zosyn on full liquid and tolerating fields is out on ivf currently ambulating still with nat drain pt would appear stable for d/c home today or tomorrow. await surgical decision plan for home abx. Zeyad Collins MD Aug 23, 2016 13:15
[2016-08-23] MEDS ORDERED: NORC5TAB PO (15:41)
[2016-08-23] MEDS ORDERED: AUGM500T7 PO (15:42)
[2016-08-23 16:00] VITALS: BP 121/76; PULSE 66; RESP 18; TEMP 97.9; O2SAT 99
[2016-08-23] MEDS: PANTOPRAZOLE SODIUM 40 MG VIAL IV PUSH SCH (16:31)
--- NOTE | 2016-08-23 17:06 | HHI.DCPOC ---
Discharge Care Plan Diagnosis: (1) Diverticular disease of intestine with perforation and abscess Goals to Promote Your Health * To prevent worsening of your condition and complications * To maintain your health at the optimal level Directions to Meet Your Goals Take your medications as prescribed Follow your dietary instruction Follow activity as directed Keep your appointments as scheduled Take your immunizations and boosters as scheduled If your symptoms worsen call your PCP, if no PCP go to Urgent Care Center or Emergency Room Smoking is Dangerous to Your Health. Avoid second hand smoke Call the 24-hour hour crisis hotline for domestic abuse at Zeyad Collins MD Aug 23, 2016 17:06
--- NOTE | 2016-08-23 17:08 | HHI.PR ---
Subjective Subjective Notes pt comfortable no cp no sob no abdominal pain Objective Vitals/I&O Vital Signs Date Time Temp Pulse Resp B/P Pulse Ox O2 Delivery O2 Flow Rate FiO2 08/23/16 12:00 96.7 63 18 133/71 98 08/23/16 09:15 21 08/21/16 20:33 Nasal Cannula 2 Abdomen: Non-tender Extremities: Perfused Narrative Exam nat serosang Wound Wound : Wound Location: Back A/P Assessment and Plan POD #2 s/p washout peritoneal cavity for perf tic patient doing well d/c nat d/c home on abx f/u office thes Jarad Obrien MD Aug 23, 2016 17:08
== END 2016-08-23 18:56 | disposition home or self-care (01) | DRG 392 ==
LOC: NEPE 14:45 → NEDA 15:51 → HPAC 17:29 → N07A 21:12
PROVIDERS: ADMIT Hospitalist; ATTEND Hospitalist
PROC: 0W9G40Z Drainage of Peritoneal Cavity with Drainage Device, Percutaneous Endoscopic Approach (ICD-10-PCS; principal; 2016-08-21 17:50)
DX: K57.20 Diverticulitis of large intestine with perforation and abscess without bleeding (principal); I10 Essential (primary) hypertension; G47.30 Sleep apnea, unspecified; K21.9 Gastro-esophageal reflux disease without esophagitis; F41.9 Anxiety disorder, unspecified; Z88.1 Allergy status to other antibiotic agents; Z80.0 Family history of malignant neoplasm of digestive organs; Z98.84 Bariatric surgery status
CPT/HCPCS: 80048; 80053; 81001; 83605; 83690; 83735; 85025; 85610; 85730; 93005; 94150; 96374; C9113; J0690; J1885; J2250; J2270; J2405; J2543; J3010; J3480; J7030; J7120

== ENCOUNTER 2017-01-28 16:12 | Inpatient (IN) | payer OTHER, MEDICAID ==
[~2017-01-28] VITALS: Ht 175.3 cm; Wt 106.0 kg
[~2017-01-28 16:12] MED LIST changes: +AUGM500T7 PO; -CARV12.52 PO; -LACTATED RINGER'S 1000 ML INJ 1,000 ML IV ONE; -LISI30TA44 PO; +MULTTAB67 PO; +NORC5TAB PO; -NORMOSOL R INJ 1,000 ML IV ONE; -ONDANSETRON HCL 4 MG/2 ML VIAL IV PUSH ONE; +PANT20TA2 PO; -PROPOFOL 200 MG/20 ML AMP IV ONE; +VITA100021 SL; -VITA20002 PO; +[UNRECOGNIZED DRUG - OTHER]
[2017-02-17] VITALS (12 sets, daily range): BP systolic 142–199; BP diastolic 84–118; PULSE 88–111; RESP 16–18; TEMP 97–98.7; O2SAT 95–99
[2017-02-17] MEDS ORDERED: INSULIN HUMAN REGULAR 1,000 UNITS/10 ML VIAL SQ PRN (06:00)
[2017-02-17] MEDS ORDERED: METRONIDAZOLE 500 MG/100 ML ISONTONIC SOLN IV SCH (06:00)
[2017-02-17] MEDS ORDERED: METOPROLOL TARTRATE 25 MG TAB PO PRN (06:00)
[2017-02-17] MEDS ORDERED: DEXT 5%-NACL 0.9% 1000 ML INJ 1,000 ML IV SCH (06:00)
[2017-02-17] MEDS ORDERED: ceFAZolin 2 GM PREMIX 50 ML IV SCH (06:00)
[2017-02-17] MEDS ORDERED: LACTATED RINGER'S 1000 ML IV PRN (06:00)
[2017-02-17] MEDS ORDERED: POVIDONE IODINE 5% (ANTISEPSIS KIT) 4 APPLICATIONS EACH NARE PRN (06:00)
[2017-02-17] MEDS ORDERED: SODIUM CHLORID 0.9% 500 ML IV PRN (06:00)
[2017-02-17] MEDS ORDERED: CHLORHEXIDINE GLUCONATE 2 % 1 PACK (2 CLOTHS) TOPICAL PRN (06:00)
[2017-02-17] MEDS ORDERED: CHEW500C2 ×2 (06:11)
[2017-02-17] MEDS ORDERED: FAMOTIDINE 20 MG/2 ML VIAL ONE (07:53)
[2017-02-17] MEDS ORDERED: DEXAMETHASONE SOD PHOS 4 MG/ML VIAL ONE (07:53)
--- NOTE | 2017-02-17 09:56 | PD.OP ---
Operative Report Date of Surgery: Feb 17, 2017 Preoperative Diagnosis: (1) Diverticulitis Postoperative Diagnosis: (1) Diverticulitis Procedure: Urologic surgery procedures: Cystoscopy with placement of bilateral ureteral catheters Anesthesia: General Surgeon: Isiah Newman [employer] Consultant(s): None Operation and Findings: Indication for procedure: Consult intraoperatively to pass bilateral ureteral catheters to aid in visualization of this patient's ureters during her colorectal procedure. Urologic surgery procedures in detail: Concurrent with the colorectal surgeon Dr. Wylie, I proceeded with cystoscopy and placement of bilateral ureteral catheters as follows: Initially cystoscopic evaluation was performed using the rigid cystoscope with a 22 Emirati sheath and 30 lens. Both right and left ureteral orifices were correct anatomic position effluxing clear yellow urine. There were no bladder mucosal lesions, calculi or diverticula formation noted. There were no areas suspicious for fistula formation. I next proceeded with passing a sensor 0.035 wire up the patient's left ureter until a small amount of resistance was met. A 6 Emirati open-ended ureteral catheter was next advanced over this wire 25 cm in a cephalad direction and the wire subsequently withdrawn. I next repeated the procedure on the contralateral side in similar fashion. With both catheters in place the cystoscope and the wire withdrawn and a 16 Emirati 10 cc Abraham catheter was inserted. Both ureteral catheters were next taken to the Abraham via a connector and all catheters were placed to gravity drainage. This concludes urologic surgery portion of combined procedures on this patient. Isiah Newman MD Feb 17, 2017 09:56
[2017-02-17] MEDS ORDERED: PROPOFOL 200 MG/20 ML AMP IV ONE (12:00)
[2017-02-17] MEDS ORDERED: ONDANSETRON HCL 4 MG/2 ML VIAL IV PUSH ONE (12:00)
[2017-02-17] MEDS ORDERED: LACTATED RINGER'S 1000 ML INJ 1,000 ML IV ONE (12:00)
[2017-02-17] MEDS ORDERED: NEOSTIGMINE 3 MG/3 ML SYR IV ONE (12:00)
[2017-02-17] MEDS ORDERED: VECURONIUM BROMIDE 10 MG VIAL IV ONE (12:00)
[2017-02-17] MEDS ORDERED: SODIUM CHLORIDE 0.9% FLUSH 5 ML FLUSH IVF PRN (12:30)
[2017-02-17] MEDS ORDERED: NALOXONE HCL 0.4 MG/ML AMP IV PRN (12:30)
[2017-02-17] MEDS ORDERED: BENZOCAINE 6 MG/MENTHOL 10 MG LOZENGE BUCCAL PRN (12:30)
[2017-02-17] MEDS ORDERED: POTASSIUM CHLOR 20 MEQ PREMIX 100 ML IV PRN (12:30)
[2017-02-17] MEDS ORDERED: ACETAMINOPHEN/HYDROcodone 325 MG/5 MG TAB PO PRN (12:30)
[2017-02-17] MEDS ORDERED: POTASSIUM CHLOR 40 MEQ PREMIX 100 ML IV PRN (12:30)
[2017-02-17] MEDS ORDERED: diphenhydrAMINE HCL 50 MG/ML VIAL IV PRN (12:30)
[2017-02-17] MEDS ORDERED: ACETAMINOPHEN 325 MG TAB PO PRN (12:30)
[2017-02-17] MEDS ORDERED: Post-op Orders (for Pharmacy) MISC XX ONE (12:45)
[2017-02-17] MEDS ORDERED: *morphine SULFATE 8 MG/ML PERIprocedure ONLY ONE (12:53)
[2017-02-17] MEDS ORDERED: MIDAZOLAM HCL 2 MG/2 ML VIAL ONE (12:55)
[2017-02-17] MEDS ORDERED: fentaNYL CITRATE 250 MCG/5 ML AMP ONE (12:55)
[2017-02-17] MEDS ORDERED: *ONDANSETRON 4 MG VIAL PERIprocedural Use ONLY ONE (12:56)
[2017-02-17] MEDS ORDERED: *HYDROmorphone PF 1 MG VIAL PERIprocedural Use ONLY ONE (13:03)
[2017-02-17] MEDS: D5-NS + KCL 20 MEQ INJ 1,000 ML IV SCH ×2 (13:10→19:50)
[2017-02-17] MEDS ORDERED: DO NOT ADM ANY ANTICOAGULANT DRUGS PRN (13:15)
[2017-02-17] MEDS ORDERED: *MEPERIDINE 25 MG INJ VIAL PERIprocedural Use ONLY ONE (13:36)
[2017-02-17 13:57] LABS: AUTOMATED NEUTROPHIL # 12.3 TH/MM3 (1.8-7.7); BASOPHIL % 0.1 % (0.0-2.0); EOSINOPHIL % 0.1 % (0.0-4.0); HEMO FLAGS DIFF FINAL; LYMPH % 6.2 % (9.0-44.0); LYMPHOCYTE # 0.8 TH/MM3 (1.0-4.8); MEAN CELL VOLUME 87.5 FL (80.0-100.0); MEAN CORPUSCULAR HEMOGLOBIN 28.7 PG (27.0-34.0); MEAN CORPUSCULAR HGB CONC 32.8 % (32.0-36.0); MONO % 1.4 % (0.0-8.0); NEUT % 92.2 % (16.0-70.0); PLATELET COUNT 186 TH/MM3 (150-450); RED BLOOD COUNT 5.25 MIL/MM3 (4.00-5.30); RED CELL DISTRIBUTION WIDTH 13.8 % (11.6-17.2); WHITE BLOOD COUNT 13.3 TH/MM3 (4.0-11.0)
[2017-02-17] MEDS: PCA - TOTAL MG MORPHINE DELIVERED PER SHIFT SCH ×3 (14:00→21:02)
[2017-02-17] MEDS: ACETAMINOPHEN/HYDROcodone 325 MG/5 MG TAB PO PRN (14:13)
[2017-02-17] MEDS: ONDANSETRON HCL 4 MG/2 ML VIAL IV PRN ×2 (14:16→20:08)
[2017-02-17 14:21] LABS: BICARBONATE 23.9 MEQ/L (21.0-32.0); POTASSIUM 3.2 MEQ/L (3.5-5.1)
[2017-02-17] MEDS: MORPHINE SULFATE 30 MG/30 ML PCA IV SCH (15:26)
[2017-02-17] MEDS: metroNIDAZOLE 500 MG INJ 100 ML IV SCH (16:41)
[2017-02-17] MEDS: ENALAPRILAT 1.25 MG/ML VIAL IV PRN (16:42)
[2017-02-17] MEDS: ENALAPRILAT 2.5 MG/2 ML VIAL IV PRN (17:16)
[2017-02-17] MEDS: KETOROLAC TROMETHAMINE 30 MG/ML (IVP) VIAL IVP PRN ×2 (17:30→18:39)
[2017-02-17] MEDS ORDERED: DIAZEPAM 5 MG TAB PO ONE (18:30)
[2017-02-17] MEDS ORDERED: PILL SPLITTER OTHER PRN (18:30)
[2017-02-17] MEDS: SODIUM CHLORIDE 0.9% FLUSH 5 ML FLUSH IVF SCH (20:59)
[2017-02-18] VITALS (22 sets, daily range): BP systolic 141–160; BP diastolic 77–92; PULSE 76–97; RESP 14–16; TEMP 98.5–98.6; O2SAT 98–100
[2017-02-18] MEDS: metroNIDAZOLE 500 MG INJ 100 ML IV SCH ×2 (01:32→09:00)
[2017-02-18] MEDS: D5-NS + KCL 20 MEQ INJ 1,000 ML IV SCH ×3 (01:32→15:59)
[2017-02-18] MEDS: PCA - TOTAL MG MORPHINE DELIVERED PER SHIFT SCH ×3 (06:00→22:00)
--- NOTE | 2017-02-18 06:12 | MP ---
cc: FRANCES WYLIE M.D., JASON M.D. DATE OF SURGERY 02/17/2017 PREOPERATIVE DIAGNOSIS Diverticulitis. POSTOPERATIVE DIAGNOSIS Diverticulitis. PROCEDURES Robotic sigmoid resection. SURGEON Frnaces Wylie MD [employer] Leon ANESTHESIA General per ET tube. ESTIMATED BLOOD LOSS 50 cc. OPERATIVE INDICATIONS The patient is a 51-year-old female with a recent episode of diverticulitis with pericolonic abscess formation which were unable to be drained via CT scan. OPERATIVE FINDINGS The liver was visibly normal. The gallbladder was not present. The uterus and ovaries were present and visibly normal. The patient has a small area in the mid-sigmoid with inflammatory changes consistent with her history of diverticulitis with some folding over and attachment to the pelvic sidewall. OPERATIVE COURSE The patient was brought to the operating room and placed in the supine position. The patient was placed in Benjamin stirrups and all bony prominences were carefully padded. The skin of the anterior abdominal wall, as well as the perineal area, was then prepped and draped in the usual sterile fashion. Dr. Newman then came in and performed cystoscopy with placement of bilateral ureteral catheters. Please see his operative note for details. A site was then chosen for the camera, being located just above and to the right of the umbilicus. A 10/12 port was placed at this location under direct vision using the laparoscope. CO2 insufflation was then undertaken. A brief abdominal survey was then undertaken with no sign of anything that would preclude the robotic approach. The right-sided ports were then placed as follows: The #10/12 port was placed just inside the right anterior superior iliac spine. The #5 assist port was placed just under the costal margin, equal distance between the camera and the #1 port. The patient was then hydroplaned with the head down and slightly to the right and the small bowel was brought up and out of the pelvis and to the right. The patient was immediately noted to have a fairly redundant descending colon and so it was evident we would not need to take down the splenic flexure. The left sided ports were then placed as follows: The #2 port was placed in left midclavicular line, in line with the umbilicus, and the #3 port was placed in the left anterior axillary line, on a line with the umbilicus. After visualization of the pelvis, there were no significant adhesions that needed to be taken down and the robot was docked. The rectosigmoid colon was then retracted down and to the left and the mesentery was scored on the right. Dissection continued in this plane underneath the superior hemorrhoidal vessels until the left ureter was clearly identified and swept away from the specimen. Dissection then continued distally down into the pelvis, behind the rectum and to the level of the proximal rectum. A window was then made around the vessels, using electrocautery, and a white load Hustler endostapler was placed across the vessels at this level. This was held for 30 seconds, fired, and removed. The staple line was examined and appeared to be complete, with no sign of any significant bleeding. Additional dissection was then continued posteriorly down to the level of the mid to distal rectum, and up and around the right and left side. The lateral attachments of the distal descending colon as well as the sigmoid colon were then dissected free using electrocautery until we had full mobility of the descending colon, sigmoid colon and proximal rectum. A sponge stick was then placed in the rectum, and a site was chosen for division of the rectum just distal to the rectosigmoid junction. The harmonic scalpel was brought onto the field and the mesentery was divided using the harmonic scalpel. Prior to resection the 33 EEA stapler was brought onto the field, placed through the anus, into the rectum, and advanced to the area of the planned resection. This came up nicely without difficulty. The blue load of the Hustler endostapler was brought onto the field and placed across the bowel at this level, held for 30 seconds and fired. There was one small 6-7 mm area that, however, was not captured and a reload was placed across this and fired. The 33 EEA stapler was again advanced through the anus and up to the rectal stump and a small amount of fibrofatty tissue was gently cleared off of the proposed staple line. The proximal bowel was brought down and it lay nicely against the rectal stump where the bowel was pink and healthy and very little additional dissection needed to be done. The robot was then undocked. An 8-9 cm transverse incision was made in the suprapubic area and, using electrocautery, dissection was carried down to the fascia of the anterior abdominal wall which was split the length of the skin incision. The medial fibers of the rectus abdominis muscle were then divided and the posterior fascia/peritoneum was then divided the length of the skin incision as well. A wound protector was then placed and the proximal stapled end of the bowel was grasped and pulled up and out through the wound protector. There was one small fold-over which was divided using electrocautery to allow straightening of the bowel. A site was then chosen for proximal division of the bowel, where it came down nicely to the symphysis pubis. The mesentery at this level was serially divided and ligated using 0 Vicryl ties. A pursestring stapling device was placed across the bowel and the distal bowel was occluded with a Gretta clamp. The bowel was amputated and the specimen was taken to a back table where it was opened and nothing was noted with the exception of the diverticular area. The anvil from the 33 EEA stapler was then placed into the cut end of bowel and the previously placed pursestring suture was then secured. There was one small area that had pulled out of the staple line; this was sutured back around the shaft of the stapler, as was one small diverticular area. This was then reduced back into the peritoneal cavity. The 33 EEA stapler was advanced again through the anus and back up to the rectal stump without difficulty. There was one small dog ear was sutured around the shaft of the stapler. The spike was advanced just anterior to the staple line. The anvil was into the spike, being sure that the bowel was not twisted . The stapler was closed, held for 30 seconds, fired, and removed. Both anastomotic rings appeared to be complete and the anastomosis appeared pink and healthy circumferentially. A small amount of warm normal saline was placed in the pelvis and the proximal bowel was gently compressed. Air was insufflated into the rectum until gentle tension was noted on the anastomosis, with no sign of any leakage noted. The air was desufflated to the extent possible and the saline was suctioned out of the pelvis. The bowel lay in a nice orientation without tension. All dissection beds were examined. No sign of any significant bleeding was noted. The posterior fascia at the suprapubic incision was closed in a running fashion using #1 PDS, and the anterior fascia was closed in a running fashion using #1 PDS. The wound was copiously irrigated with warm normal saline. The subcutaneous tissue was reapproximated in an interrupted fashion using 3-0 Vicryl and the skin was closed in a running subcuticular fashion using 3-0 Vicryl. CO2 insufflation was then resumed and the bowel lay in a nice orientation without any significant bleeding. The right lower quadrant 10/12 trocar was then closed using the CrossBow device and a #1 PDS suture. The umbilical 10/12 trocar site came in at such an angle that the CrossBow did not travel through it well, but I felt this would keep it from having any problems with herniation. The wounds were copiously irrigated with warm normal saline. The trocar sites were closed in an interrupted subcuticular fashion using 3-0 Vicryl. Steri-Strips and sterile dressings were the applied. The right ureteral stent was removed. All sponge, needle and instrument counts were correct and the patient was returned to the Post-Anesthesia Care Unit in stable condition. MD LEE Marquez/DINA /12:31 PM /5:49 AM YOANA
[2017-02-18 07:10] LABS: AUTOMATED NEUTROPHIL # 10.5 TH/MM3 (1.8-7.7); HEMO FLAGS DIFF FINAL; LYMPH % 14.1 % (9.0-44.0); LYMPHOCYTE # 1.9 TH/MM3 (1.0-4.8); MEAN CELL VOLUME 86.9 FL (80.0-100.0); MEAN CORPUSCULAR HEMOGLOBIN 28.2 PG (27.0-34.0); MEAN CORPUSCULAR HGB CONC 32.4 % (32.0-36.0); MONO % 9.2 % (0.0-8.0); NEUT % 76.7 % (16.0-70.0); PLATELET COUNT 203 TH/MM3 (150-450); WHITE BLOOD COUNT 13.7 TH/MM3 (4.0-11.0)
[2017-02-18 07:30] LABS: BICARBONATE 26.3 MEQ/L (21.0-32.0); POTASSIUM 3.9 MEQ/L (3.5-5.1)
[2017-02-18] MEDS: SODIUM CHLORIDE 0.9% FLUSH 5 ML FLUSH IVF SCH ×2 (09:00→21:00)
[2017-02-18] MEDS: PANTOPRAZOLE SODIUM 40 MG VIAL IVP SCH (09:13)
[2017-02-18] MEDS: MORPHINE SULFATE 30 MG/30 ML PCA IV SCH (09:16)
[2017-02-18] MEDS: HEPARIN SODIUM - SQ 10,000 UNITS/ML VIAL SQ SCH (12:00)
--- NOTE | 2017-02-18 13:15 | HHI.PR ---
Subjective Remarks POD#1 s/p robotic sigmoid resection Slight nausea Back pain improving Objective Vital Signs Date Time Temp Pulse Resp B/P Pulse Ox O2 Delivery O2 Flow Rate FiO2 02/18/17 10:50 16 02/18/17 09:16 16 02/18/17 06:00 79 02/18/17 06:00 16 02/18/17 05:00 78 02/18/17 04:00 84 02/18/17 03:00 98.5 97 16 141/77 100 02/18/17 03:00 86 02/18/17 02:00 82 02/18/17 01:00 88 02/18/17 00:00 86 02/17/17 23:00 90 02/17/17 23:00 98.3 96 16 158/84 99 02/17/17 22:00 88 02/17/17 21:02 16 02/17/17 21:00 96 02/17/17 20:00 94 02/17/17 20:00 98.0 95 16 153/85 99 02/17/17 19:03 16 02/17/17 19:00 102 02/17/17 18:00 98 02/17/17 18:00 199/118 02/17/17 17:30 187/115 02/17/17 17:00 100 02/17/17 17:00 190/118 02/17/17 17:00 16 02/17/17 16:30 98.7 98 16 161/99 98 02/17/17 16:30 187/109 95 02/17/17 16:15 16 02/17/17 16:00 92 02/17/17 15:26 16 02/17/17 15:00 111 02/17/17 13:45 96 14 165/81 99 Nasal Cannula 2 02/17/17 13:30 96 14 172/82 100 Nasal Cannula 2 02/17/17 13:15 88 14 166/82 100 Nasal Cannula 2 I/O 02/17/17 02/17/17 02/17/17 02/18/17 02/18/17 02/18/17 07:00 15:00 23:00 07:00 15:00 23:00 Intake Total 2000 ml 240 ml Output Total 355 ml 1150 ml Balance 1645 ml -910 ml Intake Oral 240 ml IV Total 400 ml Other 1600 ml Output Urine Total 335 ml 1150 ml Estimated Blood Loss 20 ml Result Diagram: 02/18/17 0548 02/18/17 0548 Objective Remarks doing well d/c stent, fields out later today Mobilize Hold on fulls until nausea resolves Lorie Wylie MD Feb 18, 2017 13:15
[2017-02-18] MEDS: ONDANSETRON HCL 4 MG/2 ML VIAL IV PRN (15:15)
[2017-02-19] VITALS (26 sets, daily range): BP systolic 129–168; BP diastolic 74–102; PULSE 76–105; RESP 14–20; TEMP 98–99.5; O2SAT 95–98
[2017-02-19] MEDS: D5-NS + KCL 20 MEQ INJ 1,000 ML IV SCH ×2 (00:05→08:10)
[2017-02-19] MEDS: HEPARIN SODIUM - SQ 10,000 UNITS/ML VIAL SQ SCH ×2 (00:20→12:06)
[2017-02-19] MEDS: ENALAPRILAT 2.5 MG/2 ML VIAL IV PRN (05:49)
[2017-02-19] MEDS: PCA - TOTAL MG MORPHINE DELIVERED PER SHIFT SCH (05:52)
[2017-02-19] MEDS: ONDANSETRON HCL 4 MG/2 ML VIAL IV PRN (06:18)
[2017-02-19] MEDS: ENALAPRILAT 1.25 MG/ML VIAL IV PRN (07:50)
[2017-02-19] MEDS: SODIUM CHLORIDE 0.9% FLUSH 5 ML FLUSH IVF SCH ×2 (09:00→20:11)
[2017-02-19] MEDS: PANTOPRAZOLE SODIUM 40 MG VIAL IVP SCH (09:12)
[2017-02-19 10:13] LABS: AUTOMATED NEUTROPHIL # 8.3 TH/MM3 (1.8-7.7); BASOPHIL % 0.2 % (0.0-2.0); HEMATOCRIT 38.1 % (35.0-46.0); HEMO FLAGS DIFF FINAL; LYMPHOCYTE # 1.8 TH/MM3 (1.0-4.8); MEAN CELL VOLUME 86.8 FL (80.0-100.0); MEAN CORPUSCULAR HEMOGLOBIN 29.5 PG (27.0-34.0); NEUT % 75.8 % (16.0-70.0); PLATELET COUNT 171 TH/MM3 (150-450); RED BLOOD COUNT 4.38 MIL/MM3 (4.00-5.30); RED CELL DISTRIBUTION WIDTH 13.8 % (11.6-17.2)
--- NOTE | 2017-02-19 10:34 | HHI.PR ---
Subjective Remarks POD#2 s/p robotic sigmoid resection Denies nausea No flatus as yet Objective Vital Signs Date Time Temp Pulse Resp B/P Pulse Ox O2 Delivery O2 Flow Rate FiO2 02/19/17 10:00 82 02/19/17 09:58 96 02/19/17 09:00 80 02/19/17 08:00 100 02/19/17 07:02 155/90 02/19/17 07:00 82 02/19/17 06:20 156/92 02/19/17 05:52 14 02/19/17 05:41 99.0 97 16 168/102 98 02/19/17 05:00 90 02/19/17 04:00 85 02/19/17 03:00 84 02/19/17 02:00 100 02/19/17 01:00 84 02/19/17 00:00 98.6 89 14 147/84 98 02/19/17 00:00 94 02/18/17 23:00 90 02/18/17 22:00 92 02/18/17 22:00 14 02/18/17 21:00 98.6 96 14 160/92 98 02/18/17 21:00 80 02/18/17 20:00 90 02/18/17 19:00 94 02/18/17 17:00 18 02/18/17 16:00 90 02/18/17 15:00 91 02/18/17 14:00 78 02/18/17 13:00 80 02/18/17 12:00 98.6 85 16 147/85 100 02/18/17 12:00 76 02/18/17 11:00 83 02/18/17 10:50 16 I/O 02/18/17 02/18/17 02/18/17 02/19/17 02/19/17 02/19/17 07:00 15:00 23:00 07:00 15:00 23:00 Intake Total 240 ml 2867 ml Output Total 1150 ml 3050 ml Balance -910 ml -183 ml Intake Oral 240 ml 480 ml IV Total 2387 ml Output Urine Total 1150 ml 3050 ml # Bowel Movements 0 Result Diagram: 02/19/17 0949 02/18/17 0548 Objective Remarks Nursing staff has not mobilized!!! Mobilize Advance diet Transfer to D/C MANAGER OF PMO Lorie Wylie MD Feb 19, 2017 10:34
[2017-02-19 10:43] LABS: BICARBONATE 28.7 MEQ/L (21.0-32.0); POTASSIUM 3.9 MEQ/L (3.5-5.1)
[2017-02-19] MEDS: KETOROLAC TROMETHAMINE 30 MG/ML (IVP) VIAL IVP PRN (16:11)
[2017-02-19] MEDS: ACETAMINOPHEN/HYDROcodone 325 MG/5 MG TAB PO PRN (20:11)
[2017-02-20] VITALS (12 sets, daily range): BP systolic 120–166; BP diastolic 77–99; PULSE 74–94; RESP 18–20; TEMP 98.4–99.1; O2SAT 97–98
[2017-02-20] MEDS: HEPARIN SODIUM - SQ 10,000 UNITS/ML VIAL SQ SCH (00:24)
[2017-02-20 06:48] LABS: AUTOMATED NEUTROPHIL # 5.5 TH/MM3 (1.8-7.7); BASOPHIL % 0.2 % (0.0-2.0); EOSINOPHIL % 0.4 % (0.0-4.0); HEMATOCRIT 39.8 % (35.0-46.0); HEMO FLAGS DIFF FINAL; LYMPH % 24.2 % (9.0-44.0); MEAN CELL VOLUME 86.1 FL (80.0-100.0); MEAN CORPUSCULAR HEMOGLOBIN 29.2 PG (27.0-34.0); MEAN CORPUSCULAR HGB CONC 33.9 % (32.0-36.0); MONO % 8.2 % (0.0-8.0); PLATELET COUNT 186 TH/MM3 (150-450); RED BLOOD COUNT 4.62 MIL/MM3 (4.00-5.30); RED CELL DISTRIBUTION WIDTH 13.6 % (11.6-17.2); WHITE BLOOD COUNT 8.2 TH/MM3 (4.0-11.0)
[2017-02-20 07:09] LABS: BICARBONATE 32.8 MEQ/L (21.0-32.0); POTASSIUM 3.8 MEQ/L (3.5-5.1)
[2017-02-20] MEDS: KETOROLAC TROMETHAMINE 30 MG/ML (IVP) VIAL IVP PRN (07:56)
--- NOTE | 2017-02-20 08:30 | HHI.PR ---
Subjective Remarks POD#3 s/p robotic sigmoid resection Comfortable, wants to go home Objective Vital Signs Date Time Temp Pulse Resp B/P Pulse Ox O2 Delivery O2 Flow Rate FiO2 02/20/17 06:00 90 02/20/17 05:00 86 02/20/17 04:00 99.1 86 18 141/77 97 02/20/17 04:00 76 02/20/17 03:00 76 02/20/17 02:00 74 02/20/17 01:00 94 02/20/17 00:00 98.4 76 18 139/79 97 02/20/17 00:00 76 02/19/17 23:00 88 02/19/17 22:00 80 02/19/17 21:00 76 02/19/17 20:00 99.5 85 18 135/74 95 02/19/17 20:00 86 02/19/17 18:02 85 02/19/17 17:22 22 02/19/17 17:00 81 02/19/17 16:00 84 02/19/17 15:00 105 02/19/17 15:00 99.0 97 18 148/95 97 02/19/17 14:03 89 02/19/17 13:02 86 02/19/17 12:00 83 02/19/17 11:00 97 02/19/17 11:00 98.0 81 20 129/79 96 02/19/17 10:00 82 02/19/17 09:58 96 02/19/17 09:00 80 I/O 02/19/17 02/19/17 02/19/17 02/20/17 02/20/17 02/20/17 06:59 14:59 22:59 06:59 14:59 22:59 Intake Total 2867 ml 600 ml 240 ml Output Total 3050 ml Balance -183 ml 600 ml 240 ml Intake Oral 480 ml 600 ml 240 ml IV Total 2387 ml Output Urine Total 3050 ml # Voids 3 2 # Bowel Movements 0 2 Result Diagram: 02/20/17 0620 02/20/17 0620 Objective Remarks Abdomen soft, nondistended, tender Wounds clean Assessment and Plan Assessment and Plan Doing well Home today Lorie Wylie MD Feb 20, 2017 08:30
[2017-02-20] MEDS ORDERED: HYDR-3516 PO (08:33)
[2017-02-20] MEDS: SODIUM CHLORIDE 0.9% FLUSH 5 ML FLUSH IVF SCH (08:47)
[2017-02-20] MEDS: PANTOPRAZOLE SODIUM 40 MG VIAL IVP SCH (08:47)
[2017-02-20] MEDS: ENALAPRILAT 2.5 MG/2 ML VIAL IV PRN (08:47)
--- NOTE | 2017-02-22 09:49 | MD ---
cc: FRANCES MOHAMUD M.D. ADMISSION DATE: 02/17/2017 DISCHARGE DATE: 02/20/2017 ADMISSION DIAGNOSIS Diverticulitis DISCHARGE DIAGNOSIS Diverticulitis. PROCEDURE: 1. Cystoscopy with placement of bilateral ureteral catheters. 2. Robotic sigmoid resection. BRIEF HISTORY: The patient is a 51-year-old female with a history of complicated diverticulitis. She was admitted to the hospital on February 17, 2017 after an outpatient bowel prep. HOSPITAL COURSE: She was taken to the operating room where she underwent the above-named procedures. Postoperatively she did well with rapid return of bowel and bladder function. DISCHARGE INSTRUCTIONS: She was discharged to home on postoperative day #3 with instructions follow-up with myself in the office. Final pathology revealed chronic and acute diverticulitis. MD LEE Marquez/SUZANNE /8:39 AM /9:49 AM
== END 2017-02-20 11:26 | disposition home or self-care (01) | DRG 330 ==
LOC: HSDI 02-17 05:33 → HCIS 02-17 13:56
PROVIDERS: ADMIT Colon & Rectal Surgery; ATTEND Colon & Rectal Surgery
PROC: 0TP9XDZ Removal of Intraluminal Device from Ureter, External Approach (ICD-10-PCS; 2017-02-17)
PROC: 0T788DZ Dilation of Bilateral Ureters with Intraluminal Device, Via Natural or Artificial Opening Endoscopic (ICD-10-PCS; 2017-02-17)
PROC: 0TJB8ZZ Inspection of Bladder, Via Natural or Artificial Opening Endoscopic (ICD-10-PCS; 2017-02-17)
PROC: 0DTN0ZZ Resection of Sigmoid Colon, Open Approach (ICD-10-PCS; principal; 2017-02-17 08:24)
PROC: 8E0W4CZ Robotic Assisted Procedure of Trunk Region, Percutaneous Endoscopic Approach (ICD-10-PCS; 2017-02-17 08:24)
DX: K57.20 Diverticulitis of large intestine with perforation and abscess without bleeding (principal); I10 Essential (primary) hypertension; K21.9 Gastro-esophageal reflux disease without esophagitis; M54.9 Dorsalgia, unspecified; Z80.0 Family history of malignant neoplasm of digestive organs
CPT/HCPCS: 80048; 85025; 86850; 86900; 86901; 88307; 94150; C1769; C9113; J0690; J1100; J1170; J1644; J1885; J2175; J2250; J2270; J2405; J2710; J3010; J3480; J7120

== ENCOUNTER → 2017-02-11 | Outpatient (CLI) | payer OTHER, MEDICAID ==
[~2017-02-11] MED LIST changes: +CHEW500C2; +HYDR-3516 PO
[2017-02-11 09:30] LABS: AUTOMATED NEUTROPHIL # 2.4 TH/MM3 (1.8-7.7); BASOPHIL % 0.2 % (0.0-2.0); EOSINOPHIL # 0.1 TH/MM3 (0-0.4); EOSINOPHIL % 2.4 % (0.0-4.0); HEMO FLAGS DIFF FINAL; LYMPH % 39.6 % (9.0-44.0); LYMPHOCYTE # 1.9 TH/MM3 (1.0-4.8); MEAN CELL VOLUME 85.9 FL (80.0-100.0); MEAN CORPUSCULAR HEMOGLOBIN 28.9 PG (27.0-34.0); MEAN CORPUSCULAR HGB CONC 33.7 % (32.0-36.0); MONO % 8.3 % (0.0-8.0); NEUT % 49.5 % (16.0-70.0); PLATELET COUNT 209 TH/MM3 (150-450); RED CELL DISTRIBUTION WIDTH 13.9 % (11.6-17.2); WHITE BLOOD COUNT 4.9 TH/MM3 (4.0-11.0)
[2017-02-11 09:34] LABS: PROTHROMBIN TIME - PATIENT 10.8 SEC (9.8-11.6)
[2017-02-11 09:53] LABS: ANION GAP 6 MEQ/L (5-15); AST (GOT) 8 U/L (15-37); BICARBONATE 29.6 MEQ/L (21.0-32.0); BLOOD UREA NITROGEN 24 MG/DL (7-18); CHLORIDE 106 MEQ/L (98-107); GLOMERULAR FILTRATION RATE 105 ML/MIN (>89); POTASSIUM 3.9 MEQ/L (3.5-5.1); SODIUM (NA) 142 MEQ/L (136-145)
[2017-02-11 09:54] LABS: ALT (GPT) 19 U/L (10-53)
[2017-02-11 09:56] LABS: ALKALINE PHOSPHATASE 112 U/L (45-117); TOTAL BILIRUBIN ADULT 0.5 MG/DL (0.2-1.0)
[2017-02-11 10:01] LABS: BLOOD, URINE NEG (NEG); GLUCOSE,URINE NEG (NEG); KETONE, URINE NEG (NEG); NITRITE,URINE NEG (NEG); SQUAMOUS EPITHELIAL CELL URINE 1 /hpf (0-5); URINE COLOR YELLOW (YELLW/STRAW)
[2017-02-11 10:10] LABS: COMMENT (UR) CULT NOT INDICATED; CULTURE IF INDICATED CULT NOT INDICATED
--- NOTE | 2017-02-11 11:53 | RADRPT ---
EXAM DATE/TIME: 02/11/2017 09:58 [place] COMPARISON: No previous studies available for comparison. INDICATIONS : Pre-op Laparoscopic sigmod resection. Evaluate for pneumonia, pneumothorax, and communicable disease. MEDICAL HISTORY : None. SURGICAL HISTORY : Cholecystectomy. ENCOUNTER: Initial ACUITY: 1 day PAIN SCORE: 0/10 LOCATION: Bilateral chest FINDINGS: The cardiac silhouette is normal in transverse diameter. The lungs are free of acute parenchymal opac ity. No effusions are identified. There is multilevel degenerative change throughout the spine. CONCLUSION: 1. No acute cardiopulmonary disease. Chuck Queen MD on February 11, 2017 at 11:50 Board Certified Radiologist. This report was verified electronically.
== END ==
LOC: CPRE 08:32
PROVIDERS: ATTEND Colon & Rectal Surgery
DX: Z01.811 Encounter for preprocedural respiratory examination (principal); Z01.812 Encounter for preprocedural laboratory examination; Z12.11 Encounter for screening for malignant neoplasm of colon; Z80.0 Family history of malignant neoplasm of digestive organs; K57.32 Diverticulitis of large intestine without perforation or abscess without bleeding; K57.40 Diverticulitis of both small and large intestine with perforation and abscess without bleeding
CPT/HCPCS: 71020; 80053; 81001; 85025; 85610